=== PATIENT | female | born 1995 | race Asian ===

== ENCOUNTER 2017-01-30 04:54 | Emergency (ER) | payer OTHER ==
[~2017-01-30] VITALS: Ht 160 cm; Wt 43.2 kg
[~2017-01-30 04:54] MED LIST: ZOFRAN ODT4 MG PO
[2017-01-30 04:57] VITALS: TEMP 97.5
[2017-01-30 05:32] LABS: EOS # 0.1 (0.0-0.7); EOS % 2.3 % (0-4.0); GRAN # 1.5 (1.4-6.5); GRAN % 37.6 % (42.2-75.2); HEMATOCRIT 39.2 % (35.0-45.0); HEMOGLOBIN 12.7 g/dl (12.0-15.0); LYMPH # 2.1 (1.2-3.4); LYMPH % 53.8 % (20.0-51.0); MEAN CELL VOLUME 78 fl (80.0-95.0); MEAN CORPUSCULAR HEMOGLOBIN 25 pg (26.0-32.0); MEAN CORPUSCULAR HGB CONC 32 g/dl (33.0-37.0); MEAN PLATELET VOLUME 11.1 fl (7.4-10.4); MONO # 0.2 (0.1-0.6); MONO % 5.3 % (1.7-9.3); PLATELET COUNT 212 K/mm3 (130-400); RED BLOOD COUNT 5.02 M/mm3 (4.10-5.30); REDCELL DISTRIBUTION WIDTH-CV 12.8 % (11.5-14.5)
[2017-01-30 05:47] LABS: ADJUSTED CALCIUM 9.2 mg/dL (8.4-10.2); ALBUMIN 4.7 gm/dL (3.5-5.0); BILIRUBIN,TOTAL 0.9 mg/dL (0.0-1.0); CALCIUM 9.8 mg/dL (8.4-10.2); CREATININE, serum 0.56 mg/dL (0.52-1.25); POTASSIUM 3.9 mmol/L (3.4-5.0); TOTAL PROTEIN 8.2 gm/dL (6.4-8.2)
[2017-01-30 06:05] VITALS: BP 109/65
[2017-01-30 06:26] VITALS: PULSE 77
== END 2017-01-30 06:26 | disposition home or self-care (01) ==
LOC: COL.ER 04:54
PROVIDERS: Family Medicine
DX: M79.1 Myalgia (principal)

== ENCOUNTER 2017-03-05 00:41 | Emergency (ER) | payer OTHER ==
[~2017-03-05] VITALS: Ht 162.6 cm; Wt 70.9 kg
[2017-03-05 00:45] VITALS: BP 103/68; TEMP 97.9
[2017-03-05] MEDS ORDERED: VOLTAREN 75 DR75 MG PO (02:30)
[2017-03-05] MEDS ORDERED: PREDNISONE20 MG PO (02:30)
[2017-03-05 03:06] VITALS: PULSE 88
== END 2017-03-05 03:07 | disposition home or self-care (01) ==
LOC: COL.ER 00:41
DX: M67.431 Ganglion, right wrist (principal); G56.01 Carpal tunnel syndrome, right upper limb
CPT/HCPCS: J1885; J7512

== ENCOUNTER 2018-02-10 12:16 | Emergency (ER) | payer OTHER ==
[~2018-02-10] VITALS: Ht 154.9 cm; Wt 42.7 kg
[~2018-02-10 12:16] MED LIST changes: +PREDNISONE20 MG PO; +VOLTAREN 75 DR75 MG PO
[2018-02-10 12:27] VITALS: BP 96/59; TEMP 98
[2018-02-10 13:02] LABS: BASO % 0.4 % (0.0-2.0); EOS # 0.1 (0.0-0.7); EOS % 1.9 % (0-4.0); GRAN # 3.2 (1.4-6.5); GRAN % 68.6 % (42.2-75.2); HEMOGLOBIN 12.2 g/dl (12.5-16.0); LYMPH # 1.2 (1.2-3.4); LYMPH % 24.6 % (20.0-51.0); MEAN CELL VOLUME 78 fl (80.0-100.0); MEAN CORPUSCULAR HEMOGLOBIN 26 pg (27.0-31.0); MEAN CORPUSCULAR HGB CONC 33 g/dl (33.0-37.0); MEAN PLATELET VOLUME 11.1 fl (7.4-10.4); MONO # 0.2 (0.1-0.6); MONO % 4.3 % (1.7-9.3); PLATELET COUNT 192 K/mm3 (130-400); RED BLOOD COUNT 4.71 M/mm3 (4.10-5.30); REDCELL DISTRIBUTION WIDTH-CV 13.2 % (11.5-14.5)
[2018-02-10 13:04] LABS: HEMATOCRIT 36.9 % (37.0-47.0)
[2018-02-10 13:06] LABS: ALANINE AMINOTRANSFERASE 31 U/L (9-52); ALBUMIN 4.2 gm/dL (3.5-5.0); ALKALINE PHOSPHATASE 42 U/L (50-136); ANION GAP 10 mmol/L (7-16); AST,SGOT 18 U/L (15-37); BILIRUBIN,TOTAL 0.1 mg/dL (0.0-1.0); BLOOD UREA NITROGEN 7 mg/dL (7-17); CARBON DIOXIDE 25 mmol/L (22-30); CHLORIDE 103 mmol/L (98-107); CREATININE, serum 0.45 mg/dL (0.52-1.25); GLUCOSE 121 mg/dL (74-106); POTASSIUM 3.8 mmol/L (3.4-5.0); SODIUM 138 mmol/L (137-145); TOTAL PROTEIN 7.5 gm/dL (6.4-8.2)
[2018-02-10 13:09] LABS: COLLECTION METHOD CLEAN CATCH
[2018-02-10 13:10] LABS: C-REACTIVE PROTEIN < 0.5 mg/dL (0.0-0.9)
[2018-02-10 13:23] LABS: PH 8 (5-8); SQUAMOUS EPITHELIAL 0-2 /hpf; URINE APPEARANCE Turbid; URINE BACTERIA None Seen /hpf; URINE BILIRUBIN Negative (NEGATIVE); URINE BLOOD 2+ (NEGATIVE); URINE COLOR Yellow; URINE GLUCOSE Negative (NEGATIVE); URINE KETONE Negative (NEGATIVE); URINE LEUKOCYTE ESTERASE Negative (NEGATIVE); URINE NITRATE Negative (NEGATIVE); URINE PROTEIN(semi-quant) Negative (NEGATIVE); URINE RBC >50 /hpf; URINE UROBILINOGEN Negative (NEGATIVE)
[2018-02-10 13:35] VITALS: PULSE 77
== END 2018-02-10 13:36 | disposition home or self-care (01) ==
LOC: COL.ER 12:16
PROVIDERS: Physician Assistant
DX: N94.6 Dysmenorrhea, unspecified (principal); N92.0 Excessive and frequent menstruation with regular cycle

== ENCOUNTER 2018-10-22 01:59 | Emergency (ER) | payer OTHER ==
[~2018-10-22] VITALS: Ht 154.9 cm; Wt 43.5 kg
[2018-10-22 02:01] VITALS: BP 128/85; TEMP 98.1
[2018-10-22 02:34] LABS: BASO % 0.7 % (0.0-2.0); EOS # 0.2 (0.0-0.7); EOS % 3.8 % (0-4.0); GRAN # 1.7 (1.4-6.5); GRAN % 40.5 % (42.2-75.2); HEMOGLOBIN 12.1 g/dl (12.5-16.0); LYMPH % 47.2 % (20.0-51.0); MEAN CELL VOLUME 78 fl (80.0-100.0); MEAN CORPUSCULAR HEMOGLOBIN 26 pg (27.0-31.0); MEAN CORPUSCULAR HGB CONC 33 g/dl (33.0-37.0); MEAN PLATELET VOLUME 10.8 fl (7.4-10.4); MONO # 0.3 (0.1-0.6); MONO % 7.6 % (1.7-9.3); PLATELET COUNT 229 K/mm3 (130-400); RED BLOOD COUNT 4.72 M/mm3 (4.10-5.30); REDCELL DISTRIBUTION WIDTH-CV 12.9 % (11.5-14.5)
[2018-10-22 02:35] LABS: HEMATOCRIT 36.6 % (37.0-47.0)
[2018-10-22 02:40] LABS: COLLECTION METHOD CLEAN CATCH
[2018-10-22 02:45] LABS: CALCIUM 9.5 mg/dL (8.4-10.2); CREATININE, serum 0.45 mg/dL (0.52-1.25); POTASSIUM 3.9 mmol/L (3.4-5.0)
[2018-10-22 02:54] LABS: AMORPHOUS CRYSTAL Present /uL; MUCOUS Present /lpf; PH 7 (5-8); SQUAMOUS EPITHELIAL 0-2 /hpf; URINE APPEARANCE Clear; URINE BACTERIA None Seen /hpf; URINE BILIRUBIN Negative (NEGATIVE); URINE BLOOD 2+ (NEGATIVE); URINE COLOR Yellow; URINE GLUCOSE Negative (NEGATIVE); URINE KETONE Negative (NEGATIVE); URINE LEUKOCYTE ESTERASE Negative (NEGATIVE); URINE NITRATE Negative (NEGATIVE); URINE PROTEIN(semi-quant) Negative (NEGATIVE); URINE UROBILINOGEN Negative (NEGATIVE)
[2018-10-22] MEDS ORDERED: NAPROSYN500 MG PO (03:11)
[2018-10-22 03:15] VITALS: PULSE 68
== END 2018-10-22 03:23 | disposition home or self-care (01) ==
LOC: COL.ER 01:59
PROVIDERS: Physician Assistant
DX: R10.32 Left lower quadrant pain (principal)
CPT/HCPCS: J1885

== ENCOUNTER 2018-12-13 17:41 | Emergency (ER) | payer OTHER ==
[~2018-12-13] VITALS: Ht 154.9 cm; Wt 42.3 kg
[~2018-12-13 17:41] MED LIST changes: +NAPROSYN500 MG PO
[2018-12-13 17:45] VITALS: BP 110/65; TEMP 98
[2018-12-13] MEDS ORDERED: AMOXICILLIN 8751 TAB PO (18:17)
[2018-12-13] MEDS ORDERED: PREDNISONE20 MG PO (18:18)
[2018-12-13 18:34] VITALS: PULSE 92
== END 2018-12-13 18:34 | disposition home or self-care (01) ==
LOC: COL.ER 17:41
DX: J32.9 Chronic sinusitis, unspecified (principal)

== ENCOUNTER 2019-04-06 04:17 | Emergency (ER) | payer OTHER ==
[~2019-04-06] VITALS: Ht 154.9 cm; Wt 42.7 kg
[~2019-04-06 04:17] MED LIST changes: +AMOXICILLIN 8751 TAB PO
[2019-04-06 04:22] VITALS: TEMP 96.6
[2019-04-06 04:59] LABS: BASO % 0.5 % (0.0-2.0); EOS # 0.2 (0.0-0.7); EOS % 4.8 % (0-4.0); GRAN # 1.1 (1.4-6.5); GRAN % 26.7 % (42.2-75.2); HEMOGLOBIN 11.3 g/dl (12.5-16.0); LYMPH # 2.5 (1.2-3.4); LYMPH % 60.5 % (20.0-51.0); MEAN CELL VOLUME 78 fl (80.0-100.0); MEAN CORPUSCULAR HEMOGLOBIN 25 pg (27.0-31.0); MEAN CORPUSCULAR HGB CONC 32 g/dl (33.0-37.0); MEAN PLATELET VOLUME 11.2 fl (7.4-10.4); MONO # 0.3 (0.1-0.6); MONO % 7.5 % (1.7-9.3); PLATELET COUNT 218 K/mm3 (130-400); RED BLOOD COUNT 4.58 M/mm3 (4.10-5.30); REDCELL DISTRIBUTION WIDTH-CV 13.3 % (11.5-14.5)
[2019-04-06 05:01] LABS: HEMATOCRIT 35.8 % (37.0-47.0)
[2019-04-06 05:05] LABS: INR 1.1 (0.8-3.0); PROTHROMBIN TIME 12.5 SECONDS (9.7-12.8)
[2019-04-06 05:10] LABS: ALANINE AMINOTRANSFERASE 18 U/L (9-52); ALKALINE PHOSPHATASE 37 U/L (50-136); ANION GAP 10 mmol/L (7-16); AST,SGOT 16 U/L (15-37); BILIRUBIN,TOTAL 0.3 mg/dL (0.0-1.0); BLOOD UREA NITROGEN 8 mg/dL (7-17); CALCIUM 9.2 mg/dL (8.4-10.2); CARBON DIOXIDE 26 mmol/L (22-30); CHLORIDE 103 mmol/L (98-107); CREATININE, serum 0.55 (0.52-1.25); GLUCOSE 74 mg/dL (74-106); LIPASE 89 U/L (23-300); POTASSIUM 3.5 mmol/L (3.4-5.0); SODIUM 140 mmol/L (137-145); TOTAL PROTEIN 6.8 gm/dL (6.4-8.2)
[2019-04-06 05:30] LABS: TROPONIN-I < 0.012 ng/mL (0.000-0.035)
[2019-04-06 05:37] LABS: D-DIMER < 200.00 ng/mLDDu (200-230)
[2019-04-06 05:59] VITALS: BP 101/65; PULSE 83
== END 2019-04-06 06:00 | disposition home or self-care (01) ==
LOC: COL.ER 04:17
PROVIDERS: Emergency Medicine
DX: R07.2 Precordial pain (principal)